=== PATIENT | male | born 1940 | race Caucasian/White ===

== ENCOUNTER 2017-11-16 11:39 | Observation (INO) ==
[2017-11-16 13:08] LABS: BILIRUBIN,URINE NEGATIVE (NEGATIVE); BLOOD/HEMOGLOBIN,URINE 1+ (NEGATIVE); GLUCOSE, URINE NEGATIVE (NEGATIVE); KETONES,URINE 3+ (NEGATIVE); LEUKOCYTE ESTERASE ,URINE 1+ (NEGATIVE); NITRITES,URINE NEGATIVE (NEGATIVE); PROTEIN,URINE 2+ (NEGATIVE); UROBILINOGEN,URINE NORMAL (NORMAL)
[2017-11-16 13:14] LABS: BASOPHILS # (AUTO) 0.1 X10^3/uL (0.0-0.1); BASOPHILS % (AUTO) 0.5 % (0.2-1.0); EOSINOPHILS # (AUTO) 0.1 x10^3/uL (0.0-0.2); EOSINOPHILS % (AUTO) 0.8 % (0.9-2.9); HEMATOCRIT 45.6 % (42.0-54.0); HEMOGLOBIN 15.8 g/dL (13.5-18.0); LYMPHOCYTES # (AUTO) 1.7 X10^3/uL (1.3-2.9); LYMPHOCYTES % (AUTO) 15.5 % (21.0-51.0); MEAN CORPUSCULAR HEMOGLOBIN 31.1 pg (27.0-34.0); MEAN CORPUSCULAR HGB CONC 34.7 g/dL (33.0-35.0); MEAN CORPUSCULAR VOLUME 89.8 fL (80.0-100.0); MEAN PLATELET VOLUME 9.1 fL (7.4-11.0); MONOCYTES % (AUTO) 9.8 % (0.0-13.0); NEUTROPHILS # (AUTO) 7.8 x10^3/uL (2.2-4.8); NEUTROPHILS % (AUTO) 73.4 % (42.0-75.0); PLATELET COUNT 169 X10^3/uL (150.0-450.0); RED BLOOD COUNT 5.08 X10^6/uL (4.7-6.0); RED CELL DISTRIBUTION WIDTH 13.9 % (11.6-16.5); WHITE BLOOD COUNT 10.7 X10^3/uL (3.6-10.0)
[2017-11-16] MEDS: PEPCID 20 MG IV PREMIX* 20 MG/50 ML BAG IV SCH ×2 (13:15→21:09)
[2017-11-16] MEDS: PROTONIX INJ 40 MG VIAL IVP SCH ×2 (13:15→21:09)
[2017-11-16] MEDS: NS 1000 ML 1,000 ML IV SCH ×2 (13:15→21:08)
[2017-11-16 13:25] LABS: ALANINE AMINOTRANSFERASE 28 Units/L (12-78); ALBUMIN 3.5 g/dL (3.4-5.0); ALKALINE PHOSPHATASE 85 Units/L (46-116); ASPARTATE AMINO TRANSFERASE 18 Units/L (15-37); BLOOD UREA NITROGEN 18 mg/dL (7-18); CALCIUM 8.1 mg/dL (8.5-10.1); CARBON DIOXIDE 26.2 mmol/L (21-32); CHLORIDE 101 mmol/L (98-107); COR NA(FOR HYPERGLY) 137 mmol/L (136-145); CREATININE 1.45 mg/dL (0.70-1.30); SODIUM 137 mmol/L (136-145); TOTAL PROTEIN 7.5 g/dL (6.4-8.2); eGFR NON BLACK RACES 51 (>60)
[2017-11-16 13:32] VITALS: BMI 26.9
[2017-11-16 13:34] LABS: APPEARANCE,URINE HAZY (CLEAR); BACTERIA,URINE TRACE /HPF (NEGATIVE); COLOR,URINE DARK YELLOW (YELLOW); HYALINE CASTS, URINE MODERATE /LPF (NEGATIVE); MUCUS,URINE MODERATE /HPF (NEGATIVE); SQUAMOUS EPITHELIAL CELL,UR FEW /HPF (NEGATIVE)
--- NOTE | 2017-11-16 16:55 | CT ---
Indication: Abdominal pain and history of prostate cancer Exam: CT abdomen and pelvis without contrast. Technique: Axial spiral images were obtained from lung bases through the pubic symphysis after oral c ontrast only. Automated dose control was utilized. Comparison: 07/30/2014. Findings: There is mild parenchymal scarring along the right lung base which is unchanged. The liver and spleen are normal size and density. There is interposition of the colon anterior to the liver whi ch is unchanged. The gallbladder has been removed with clips in the gallbladder fossa. The bile ducts , pancreas, and adrenals are normal. There is perirenal scarring around both kidneys . There is a hyp odense mass along the upper pole left kidney measuring 2 cm which measures water density . There is p erirenal scarring bilaterally which is unchanged. No hydronephrosis or renal stones are seen. The ure ters are normal caliber. There are radium implants scattered in the prostate gland . The bladder is u nremarkable with mild fat density along the inguinal regions bilaterally which is unchanged . There a re no bowel loops in the area which is unchanged. There are numerous diverticula throughout the left colon and sigmoid region with no pericolonic inflammation. There are several loops of mild to moderat tom dilated small bowel throughout the abdomen extending into the pelvis with a couple of loops of no rmal appearing distal ileum extending to the ileocecal valve . There small air-fluid levels throughou t the small bowel. The point of the obstruction is not well delineated. The appendix is unremarkable with no pericecal inflammation . The mesentery is unremarkable. The colon is normal caliber . No heladio opathy or ascites is seen. The bones are intact. No aggressive osseous lesion is seen. Impression: Findings in keeping with a distal partial small bowel obstruction with the etiology of the obstructio n uncertain. Perirenal scarring with no hydronephrosis or renal stones and no urinary obstruction . 2 cm cyst upper pole left kidney which has enlarged since the prior study, suggest ultrasound correla tion. Previous cholecystectomy which is unchanged. Moderate diverticulosis of the left colon and sigmoid region with no pericolonic inflammation. [place] implants in the prostate gland and probable small inguinal hernias bilaterally which is unchan ged. Reported By:
[2017-11-17 05:17] LABS: BASOPHILS % (AUTO) 0.5 % (0.2-1.0); EOSINOPHILS # (AUTO) 0.1 x10^3/uL (0.0-0.2); EOSINOPHILS % (AUTO) 1.8 % (0.9-2.9); HEMATOCRIT 40.5 % (42.0-54.0); HEMOGLOBIN 13.8 g/dL (13.5-18.0); LYMPHOCYTES # (AUTO) 1.4 X10^3/uL (1.3-2.9); LYMPHOCYTES % (AUTO) 20.9 % (21.0-51.0); MEAN CORPUSCULAR HEMOGLOBIN 30.8 pg (27.0-34.0); MEAN CORPUSCULAR HGB CONC 34.1 g/dL (33.0-35.0); MEAN CORPUSCULAR VOLUME 90.3 fL (80.0-100.0); MEAN PLATELET VOLUME 9.2 fL (7.4-11.0); MONOCYTES # (AUTO) 0.8 x10^3/uL (0.3-0.8); MONOCYTES % (AUTO) 11.9 % (0.0-13.0); NEUTROPHILS # (AUTO) 4.4 x10^3/uL (2.2-4.8); NEUTROPHILS % (AUTO) 64.9 % (42.0-75.0); PLATELET COUNT 155 X10^3/uL (150.0-450.0); RED BLOOD COUNT 4.48 X10^6/uL (4.7-6.0); WHITE BLOOD COUNT 6.7 X10^3/uL (3.6-10.0)
[2017-11-17 05:34] LABS: ALANINE AMINOTRANSFERASE 25 Units/L (12-78); ALBUMIN 2.9 g/dL (3.4-5.0); ALKALINE PHOSPHATASE 71 Units/L (46-116); ASPARTATE AMINO TRANSFERASE 18 Units/L (15-37); BLOOD UREA NITROGEN 16 mg/dL (7-18); CALCIUM 7.2 mg/dL (8.5-10.1); CHLORIDE 108 mmol/L (98-107); COR CA(FOR HYPOALB) 8.1 mg/dL (8.5-10.1); CREATININE 1.21 mg/dL (0.70-1.30); SODIUM 139 mmol/L (136-145); TOTAL PROTEIN 6.2 g/dL (6.4-8.2); eGFR NON BLACK RACES > 60 (>60)
[2017-11-17] MEDS: NS 1000 ML 1,000 ML IV SCH ×3 (05:34→21:11)
--- NOTE | 2017-11-17 07:28 | RAD ---
HISTORY: Follow-up partial small bowel obstruction Study: KUB Comparison: CT abdomen pelvis 11/16/2017, Findings: Multiple dilated loops of small bowel are identified in the upper abdomen. Gas is seen distally withi n the colon as it is contrast from recent CT. This precludes complete small bowel obstruction. A part ial small bowel obstruction is likely present. No abnormal masses or abnormal calcifications are iden tified. IMPRESSION: Finding consistent with at least partial small bowel obstruction Reported By:
--- NOTE | 2017-11-17 08:06 | DR.UPDATE ---
H&P Update History and Physical Update: WAS SEEN IN THE OFFICE TODAY. A H&P WAS COMPLETED PRIOR TO ADMISSION. PATIENT HAS BEEN SEEN AND EXAMINED WITH NO CHANGES NOTED TO H&P. Changes noted: NO Yes with the following:
[2017-11-17] MEDS: PEPCID 20 MG IV PREMIX* 20 MG/50 ML BAG IV SCH ×3 (08:14→21:25)
[2017-11-17] MEDS: PROTONIX INJ 40 MG VIAL IVP SCH ×2 (08:14→21:11)
[2017-11-17] MEDS: LOPRESSOR TAB 25 MG PO SCH ×2 (10:18→10:26)
[2017-11-17] MEDS: MYSOLINE PO SCH ×2 (10:19→10:27)
[2017-11-17] MEDS: ALPHAGAN 0.2% OPHTH SOLN RIGHTEYE SCH ×3 (10:25→21:14)
[2017-11-17] MEDS: TRUSOPT PLUS (OPHTH) RIGHTEYE SCH ×3 (10:26→21:24)
[2017-11-17] MEDS: SYNTHROID 50 mcg TAB PO SCH (16:23)
--- NOTE | 2017-11-17 19:57 | PCM.PROG ---
Progress Note - Progress Note for Day of Date: 11/17/17 - Subjective Subjective: WAS ADMITTED FOR ABDOMINAL PAIN, DIARRHEA, AND GENERALIZED WEAKNESS. CT OBTAINED ON ADMISSION REVEALED A PARTIAL SMALL BOWEL OBSTRUCTION. TODAY, HE IS ALERT AND ORIENTED, LYING IN BED ON MORNING ROUNDS. HE CONTINUES WITH MILD, DIFFUSE ABDOMINAL PAIN AND LOOSE STOOLS. HE ALSO CONTINUES WITH GENERALIZED WEAKNESS. HIS VITALS THIS MORNING ARE 98.0-63-20-97%- 129/67. LABS WERE OBTAINED. ABNORMAL LAB VALUES INCLUDE THE FOLLOWING: RBC 4.48 , HCT 40.25, CHLORIDE 108, CARBON DIOXIDE 20.0, CALCIUM 7.2, TOTAL PROTEIN 6.2, ALBUMIN 2.9. URINALYSIS REVEALED WBC 3-5, RBC 3-5, LEUKOCYTES 1+, BACTERIA TRACE. A KUB WAS OBTAINED THIS MORNING AND REVEALED FINDINGS CONSISTENT WITH AT LEAST PARTIAL SMALL BOWEL OBSTRUCTION. TODAY, WE WILL ALLOW PATIENT TO HAVE A CLEAR LIQUID DIET TOLERATED AND START ROCEPHIN 1GM IV DAILY FOR UTI. OTHERWISE, WE WILL FOLLOW UP WITH AM LABS AND CONTINUE TO MONTIOR PATIENT. - Past Medical Family Social History Past Med/Fam/Surg Hx: No changes since H&P (T) Allergies: Allergies Iodinated Contrast- Oral and IV Dye Allergy (Verified 11/17/17 09:40) - Review of Systems ROS: No change since H&P - Vital Signs and I&O's Vital Signs: Temperature 97.6 F Pulse Rate [Left Brachial] 60 Pulse Rate [Right Brachial] 56 Respiratory Rate 18 Blood Pressure [Left Arm] 124/66 Blood Pressure [Right Arm] 120/62 Blood Pressure 150/67 O2 Sat by Pulse Oximetry 96 Intake and Output: Intake & Output 11/15/17 11/16/17 11/17/17 11/18/17 11:59 11:59 11:59 11:59 Intake Total 1630 1120 Balance 1630 1120 - Physical Exam Oriented: Normal Eyes: Normal Ear: Normal Nose: Normal Throat: Normal Respiratory: Normal Cardiovascular: Normal. negative: S3, S4, Murmur, Edema : Normal Auscultation: Bowel Sounds: Normal Palpation: Normal Tenderness: Diffuse, Mild. negative: Rebound, Guarding, Rigidity Skin: Normal Musculoskeletal: Normal Psychiatric: Normal Mood Description: Calm Affect: Normal Speech Pattern: Clear, Appropriate - Laboratory and Diagnostics Result Diagrams: 11/17/17 04:52 11/17/17 04:52 Labs: Laboratory WBC 6.7 X10^3/uL (3.6-10.0) 11/17/17 04:52 RBC 4.48 X10^6/uL (4.7-6.0) L 11/17/17 04:52 Hgb 13.8 g/dL (13.5-18.0) D 11/17/17 04:52 Hct 40.5 % (42.0-54.0) L 11/17/17 04:52 MCV 90.3 fL (80.0-100.0) 11/17/17 04:52 MCH 30.8 pg (27.0-34.0) 11/17/17 04:52 MCHC 34.1 g/dL (33.0-35.0) 11/17/17 04:52 RDW 14.0 % (11.6-16.5) 11/17/17 04:52 Plt Count 155 X10^3/uL (150.0-450.0) 11/17/17 04:52 MPV 9.2 fL (7.4-11.0) 11/17/17 04:52 Neut % (Auto) 64.9 % (42.0-75.0) 11/17/17 04:52 Lymph % (Auto) 20.9 % (21.0-51.0) L 11/17/17 04:52 [place] % (Auto) 11.9 % (0.0-13.0) 11/17/17 04:52 Eos % (Auto) 1.8 % (0.9-2.9) 11/17/17 04:52 Baso % (Auto) 0.5 % (0.2-1.0) 11/17/17 04:52 Neut # (Auto) 4.4 x10^3/uL (2.2-4.8) 11/17/17 04:52 Lymph # (Auto) 1.4 X10^3/uL (1.3-2.9) 11/17/17 04:52 [place] # (Auto) 0.8 x10^3/uL (0.3-0.8) 11/17/17 04:52 Eos # (Auto) 0.1 x10^3/uL (0.0-0.2) 11/17/17 04:52 Baso # (Auto) 0.0 X10^3/uL (0.0-0.1) 11/17/17 04:52 Absolute Nucleated RBC 0.0 /100WBC 11/17/17 04:52 Sodium 139 mmol/L (136-145) 11/17/17 04:52 Corrected Sodium TNP 11/17/17 04:52 Potassium 3.9 mmol/L (3.5-5.1) 11/17/17 04:52 Chloride 108 mmol/L (98-107) H 11/17/17 04:52 Carbon Dioxide 20.0 mmol/L (21-32) L 11/17/17 04:52 BUN 16 mg/dL (7-18) 11/17/17 04:52 Creatinine 1.21 mg/dL (0.70-1.30) 11/17/17 04:52 Est GFR (MDRD) Af Amer > 60 (>60) 11/17/17 04:52 Est GFR (MDRD) Non-Af > 60 (>60) 11/17/17 04:52 Glucose 88 mg/dL (65-99) 11/17/17 04:52 Calcium 7.2 mg/dL (8.5-10.1) L 11/17/17 04:52 Corrected Calcium 8.1 mg/dL (8.5-10.1) L 11/17/17 04:52 Total Bilirubin 0.60 mg/dL (0.2-1.0) 11/17/17 04:52 AST 18 Units/L (15-37) 11/17/17 04:52 ALT 25 Units/L (12-78) 11/17/17 04:52 Alkaline Phosphatase 71 Units/L (46-116) 11/17/17 04:52 Total Protein 6.2 g/dL (6.4-8.2) L 11/17/17 04:52 Albumin 2.9 g/dL (3.4-5.0) L 11/17/17 04:52 Globulin 3.3 g/dL (2.5-4.5) 11/17/17 04:52 Albumin/Globulin Ratio 0.9 Ratio (1.1-2.1) L 11/17/17 04:52 Specimen Type Clean catch urine 11/16/17 12:46 Urine Color Dark yellow (YELLOW) 11/16/17 12:46 Urine Appearance Hazy (CLEAR) 11/16/17 12:46 Urine pH 5.0 (5.0 - 8.0) 11/16/17 12:46 Ur Specific [place] 1.025 (1.000-1.030) 11/16/17 12:46 Urine Protein 2+ (NEGATIVE) 11/16/17 12:46 Urine Glucose (UA) Negative (NEGATIVE) 11/16/17 12:46 Urine Ketones 3+ (NEGATIVE) 11/16/17 12:46 Urine Occult Blood 1+ (NEGATIVE) 11/16/17 12:46 Urine Nitrite Negative (NEGATIVE) 11/16/17 12:46 Urine Bilirubin Negative (NEGATIVE) 11/16/17 12:46 Urine Urobilinogen Normal (NORMAL) 11/16/17 12:46 Ur Leukocyte Esterase 1+ (NEGATIVE) 11/16/17 12:46 Urine RBC 3-5 /HPF (NONE SEEN) 11/16/17 12:46 Urine WBC 3-5 /HPF (NONE SEEN) 11/16/17 12:46 Ur Squamous Epith Cells Few /HPF (NEGATIVE) 11/16/17 12:46 Urine Bacteria Trace /HPF (NEGATIVE) 11/16/17 12:46 Hyaline Casts Moderate /LPF (NEGATIVE) 11/16/17 12:46 Urine Mucus Moderate /HPF (NEGATIVE) 11/16/17 12:46 Ur Culture Indicated? No/not indicated 11/16/17 12:46 - Plan (1) Small bowel obstruction Status: Acute Plan: CLEAR LIQUID DIET, CONTINUE IV FLUIDS, CONTINUE TO MONITOR (2) UTI (urinary tract infection) Status: Acute Qualifiers: Urinary tract infection type: acute cystitis Hematuria presence: without hematuria Qualified Code(s): N30.00 - Acute cystitis without hematuria Plan: ROCEPHIN 1GM IV DAILY (3) Gastroesophageal reflux disease Status: Chronic Plan: PEPCID 20MG IV Q12H, PROTONIX 40MG IV BID, CONTINUE TO MONITOR (4) Glaucoma Status: Chronic Plan: CONTINUE HOME MEDICATIONS (5) History of - hypertension Status: Chronic Plan: CONTINUE LOPRESSOR 25MG PO DAILY (6) Hypothyroid Status: Acute Qualifiers: Hypothyroidism type: acquired Qualified Code(s): E03.9 - Hypothyroidism, unspecified Plan: CONTINUE SYNTHROID, CONTINUE TO MONITOR
[2017-11-17] MEDS: BIMATOPROST EACHEYE SCH ×2 (21:12→21:16)
[2017-11-18] MEDS: NS 1000 ML 1,000 ML IV SCH ×3 (04:16→20:25)
[2017-11-18 05:06] LABS: BASOPHILS % (AUTO) 0.5 % (0.2-1.0); EOSINOPHILS # (AUTO) 0.1 x10^3/uL (0.0-0.2); EOSINOPHILS % (AUTO) 1.8 % (0.9-2.9); HEMATOCRIT 39.4 % (42.0-54.0); HEMOGLOBIN 13.5 g/dL (13.5-18.0); LYMPHOCYTES % (AUTO) 17.2 % (21.0-51.0); MEAN CORPUSCULAR HGB CONC 34.3 g/dL (33.0-35.0); MEAN CORPUSCULAR VOLUME 90.5 fL (80.0-100.0); MEAN PLATELET VOLUME 9.4 fL (7.4-11.0); MONOCYTES # (AUTO) 0.6 x10^3/uL (0.3-0.8); MONOCYTES % (AUTO) 9.8 % (0.0-13.0); NEUTROPHILS # (AUTO) 4.2 x10^3/uL (2.2-4.8); NEUTROPHILS % (AUTO) 70.7 % (42.0-75.0); PLATELET COUNT 149 X10^3/uL (150.0-450.0); RED BLOOD COUNT 4.36 X10^6/uL (4.7-6.0); WHITE BLOOD COUNT 5.9 X10^3/uL (3.6-10.0)
[2017-11-18 05:21] LABS: ALANINE AMINOTRANSFERASE 23 Units/L (12-78); ALBUMIN 2.8 g/dL (3.4-5.0); ALKALINE PHOSPHATASE 71 Units/L (46-116); ASPARTATE AMINO TRANSFERASE 21 Units/L (15-37); BLOOD UREA NITROGEN 15 mg/dL (7-18); CALCIUM 7.2 mg/dL (8.5-10.1); CARBON DIOXIDE 19.8 mmol/L (21-32); CHLORIDE 111 mmol/L (98-107); COR CA(FOR HYPOALB) 8.2 mg/dL (8.5-10.1); CREATININE 1.11 mg/dL (0.70-1.30); SODIUM 142 mmol/L (136-145); TOTAL PROTEIN 5.9 g/dL (6.4-8.2); eGFR NON BLACK RACES > 60 (>60)
--- NOTE | 2017-11-18 07:31 | RAD ---
History: Partial small bowel obstruction Study: KUB, comparison 11/17/2017 Findings: Spine view of the abdomen and pelvis shows minimal contrast throughout colon than. Innumera ble diverticula are seen throughout the colon particularly left colon. There is slight persistent dilatation of bowel in the mid to left abdomen this is minimally less appa rent than on the previous examination. Impression: 1. Minimal decrease in the amount of small bowel distention. 2. Prominent diverticulosis Reported By:
[2017-11-18] MEDS: LOPRESSOR TAB 25 MG PO SCH (08:33)
[2017-11-18] MEDS: MYSOLINE PO SCH (08:33)
[2017-11-18] MEDS: PEPCID 20 MG IV PREMIX* 20 MG/50 ML BAG IV SCH ×2 (08:35→20:27)
[2017-11-18] MEDS: PROTONIX INJ 40 MG VIAL IVP SCH ×2 (08:35→20:27)
[2017-11-18] MEDS: TRUSOPT PLUS (OPHTH) RIGHTEYE SCH ×2 (08:36→20:27)
[2017-11-18] MEDS: ALPHAGAN 0.2% OPHTH SOLN RIGHTEYE SCH ×3 (08:36→20:26)
[2017-11-18] MEDS: SYNTHROID 50 mcg TAB PO SCH (15:59)
[2017-11-18] MEDS: BIMATOPROST EACHEYE SCH (20:26)
--- NOTE | 2017-11-18 22:04 | PCM.PROG ---
Progress Note - Progress Note for Day of Date: 11/18/17 - Subjective Subjective: WAS ADMITTED FOR ABDOMINAL PAIN, DIARRHEA, AND GENERALIZED WEAKNESS. CT OBTAINED ON ADMISSION REVEALED A PARTIAL SMALL BOWEL OBSTRUCTION. TODAY, HE IS ALERT AND ORIENTED, LYING IN BED ON MORNING ROUNDS. HE CONTINUES WITH MILD, DIFFUSE ABDOMINAL PAIN AND LOOSE STOOLS. HE ALSO CONTINUES WITH GENERALIZED WEAKNESS. HIS VITALS THIS MORNING ARE 97.6-68-18-96%- 139/69. LABS WERE OBTAINED. ABNORMAL LAB VALUES INCLUDE THE FOLLOWING: RBC 4.36 , HCT 39.4, CHLORIDE 111, CARBON DIOXIDE 19.8, CALCIUM 7.2, TOTAL PROTEIN 5.9, ALBUMIN 2.8. A KUB WAS OBTAINED AND REVEALED MINIMAL DECREASE IN THE AMOUNT OF SMALL BOWEL DISTENTION. PROMINENT DIVERTICULOSIS. TODAY, WE WILL ADVANCE DIET TO FULL LIQUIDS. OTHERWISE, WE WILL FOLLOW UP WITH AM LABS AND CONTINUE TO MONITOR PATIENT. - Past Medical Family Social History Past Med/Fam/Surg Hx: No changes since H&P (T) Allergies: Allergies Iodinated Contrast- Oral and IV Dye Allergy (Verified 11/17/17 09:40) - Review of Systems ROS: No change since H&P - Vital Signs and I&O's Vital Signs: Temperature 97.8 F Pulse Rate [Left Brachial] 62 Pulse Rate [Right Brachial] 56 Respiratory Rate 18 Blood Pressure [Left Arm] 123/62 Blood Pressure [Right Arm] 120/62 Blood Pressure 150/67 O2 Sat by Pulse Oximetry 97 Intake and Output: Intake & Output 11/16/17 11/17/17 11/18/17 11/19/17 11:59 11:59 11:59 11:59 Intake Total 1630 1360 340 Balance 1630 1360 340 - Physical Exam Oriented: Normal Eyes: Normal Ear: Normal Nose: Normal Throat: Normal Respiratory: Normal Cardiovascular: Normal. negative: S3, S4, Murmur, Edema : Normal Auscultation: Bowel Sounds: Normal Palpation: Normal Tenderness: Diffuse, Mild. negative: Rebound, Guarding, Rigidity Skin: Normal Musculoskeletal: Normal Psychiatric: Normal Mood Description: Calm Affect: Normal Speech Pattern: Clear - Laboratory and Diagnostics Result Diagrams: 11/18/17 04:18 11/18/17 04:18 Labs: Laboratory WBC 5.9 X10^3/uL (3.6-10.0) 11/18/17 04:18 RBC 4.36 X10^6/uL (4.7-6.0) L 11/18/17 04:18 Hgb 13.5 g/dL (13.5-18.0) 11/18/17 04:18 Hct 39.4 % (42.0-54.0) L 11/18/17 04:18 MCV 90.5 fL (80.0-100.0) 11/18/17 04:18 MCH 31.0 pg (27.0-34.0) 11/18/17 04:18 MCHC 34.3 g/dL (33.0-35.0) 11/18/17 04:18 RDW 14.0 % (11.6-16.5) 11/18/17 04:18 Plt Count 149 X10^3/uL (150.0-450.0) L 11/18/17 04:18 MPV 9.4 fL (7.4-11.0) 11/18/17 04:18 Neut % (Auto) 70.7 % (42.0-75.0) 11/18/17 04:18 Lymph % (Auto) 17.2 % (21.0-51.0) L 11/18/17 04:18 [place] % (Auto) 9.8 % (0.0-13.0) 11/18/17 04:18 Eos % (Auto) 1.8 % (0.9-2.9) 11/18/17 04:18 Baso % (Auto) 0.5 % (0.2-1.0) 11/18/17 04:18 Neut # (Auto) 4.2 x10^3/uL (2.2-4.8) 11/18/17 04:18 Lymph # (Auto) 1.0 X10^3/uL (1.3-2.9) L 11/18/17 04:18 [place] # (Auto) 0.6 x10^3/uL (0.3-0.8) 11/18/17 04:18 Eos # (Auto) 0.1 x10^3/uL (0.0-0.2) 11/18/17 04:18 Baso # (Auto) 0.0 X10^3/uL (0.0-0.1) 11/18/17 04:18 Absolute Nucleated RBC 0.1 /100WBC 11/18/17 04:18 Sodium 142 mmol/L (136-145) 11/18/17 04:18 Corrected Sodium TNP 11/18/17 04:18 Potassium 3.9 mmol/L (3.5-5.1) 11/18/17 04:18 Chloride 111 mmol/L (98-107) H 11/18/17 04:18 Carbon Dioxide 19.8 mmol/L (21-32) L 11/18/17 04:18 BUN 15 mg/dL (7-18) 11/18/17 04:18 Creatinine 1.11 mg/dL (0.70-1.30) 11/18/17 04:18 Est GFR (MDRD) Af Amer > 60 (>60) 11/18/17 04:18 Est GFR (MDRD) Non-Af > 60 (>60) 11/18/17 04:18 Glucose 73 mg/dL (65-99) 11/18/17 04:18 Calcium 7.2 mg/dL (8.5-10.1) L 11/18/17 04:18 Corrected Calcium 8.2 mg/dL (8.5-10.1) L 11/18/17 04:18 Total Bilirubin 0.70 mg/dL (0.2-1.0) 11/18/17 04:18 AST 21 Units/L (15-37) 11/18/17 04:18 ALT 23 Units/L (12-78) 11/18/17 04:18 Alkaline Phosphatase 71 Units/L (46-116) 11/18/17 04:18 Total Protein 5.9 g/dL (6.4-8.2) L 11/18/17 04:18 Albumin 2.8 g/dL (3.4-5.0) L 11/18/17 04:18 Globulin 3.1 g/dL (2.5-4.5) 11/18/17 04:18 Albumin/Globulin Ratio 0.9 Ratio (1.1-2.1) L 11/18/17 04:18 Specimen Type Clean catch urine 11/16/17 12:46 Urine Color Dark yellow (YELLOW) 11/16/17 12:46 Urine Appearance Hazy (CLEAR) 11/16/17 12:46 Urine pH 5.0 (5.0 - 8.0) 11/16/17 12:46 Ur Specific [place] 1.025 (1.000-1.030) 11/16/17 12:46 Urine Protein 2+ (NEGATIVE) 11/16/17 12:46 Urine Glucose (UA) Negative (NEGATIVE) 11/16/17 12:46 Urine Ketones 3+ (NEGATIVE) 11/16/17 12:46 Urine Occult Blood 1+ (NEGATIVE) 11/16/17 12:46 Urine Nitrite Negative (NEGATIVE) 11/16/17 12:46 Urine Bilirubin Negative (NEGATIVE) 11/16/17 12:46 Urine Urobilinogen Normal (NORMAL) 11/16/17 12:46 Ur Leukocyte Esterase 1+ (NEGATIVE) 11/16/17 12:46 Urine RBC 3-5 /HPF (NONE SEEN) 11/16/17 12:46 Urine WBC 3-5 /HPF (NONE SEEN) 11/16/17 12:46 Ur Squamous Epith Cells Few /HPF (NEGATIVE) 11/16/17 12:46 Urine Bacteria Trace /HPF (NEGATIVE) 11/16/17 12:46 Hyaline Casts Moderate /LPF (NEGATIVE) 11/16/17 12:46 Urine Mucus Moderate /HPF (NEGATIVE) 11/16/17 12:46 Ur Culture Indicated? No/not indicated 11/16/17 12:46 - Plan (1) Small bowel obstruction Status: Acute Plan: CLEAR LIQUID DIET, CONTINUE IV FLUIDS, CONTINUE TO MONITOR (2) UTI (urinary tract infection) Status: Acute Qualifiers: Urinary tract infection type: acute cystitis Hematuria presence: without hematuria Qualified Code(s): N30.00 - Acute cystitis without hematuria Plan: ROCEPHIN 1GM IV DAILY (3) Gastroesophageal reflux disease Status: Chronic Plan: PEPCID 20MG IV Q12H, PROTONIX 40MG IV BID, CONTINUE TO MONITOR (4) Glaucoma Status: Chronic Plan: CONTINUE HOME MEDICATIONS (5) History of - hypertension Status: Chronic Plan: CONTINUE LOPRESSOR 25MG PO DAILY (6) Hypothyroid Status: Acute Qualifiers: Hypothyroidism type: acquired Qualified Code(s): E03.9 - Hypothyroidism, unspecified Plan: CONTINUE SYNTHROID, CONTINUE TO MONITOR
--- NOTE | 2017-11-19 09:59 | RAD ---
HISTORY: Partial small bowel obstruction Study: KUB Comparison: 11/18/2017 Findings: Multiple dilated loops of small bowel are again identified in the left upper quadrant. Gas is present distally within the colon. These findings are consistent with at least partial small bowel obstructi on and are unchanged from the prior examination. Contrast is present in numerous descending and sigmo id colon diverticula unchanged from the prior examination. IMPRESSION: Findings suggestive of at least a partial small bowel obstruction unchanged when compared with the pr ior examination Reported By:
[2017-11-19 14:09] LABS: ALANINE AMINOTRANSFERASE 21 Units/L (12-78); ALBUMIN 2.6 g/dL (3.4-5.0); ALKALINE PHOSPHATASE 66 Units/L (46-116); ASPARTATE AMINO TRANSFERASE 19 Units/L (15-37); BASOPHILS % (AUTO) 0.5 % (0.2-1.0); BLOOD UREA NITROGEN 9 mg/dL (7-18); CALCIUM 7.2 mg/dL (8.5-10.1); CARBON DIOXIDE 19.6 mmol/L (21-32); CHLORIDE 112 mmol/L (98-107); COR CA(FOR HYPOALB) 8.3 mg/dL (8.5-10.1); CREATININE 1.12 mg/dL (0.70-1.30); EOSINOPHILS # (AUTO) 0.1 x10^3/uL (0.0-0.2); EOSINOPHILS % (AUTO) 2.2 % (0.9-2.9); HEMATOCRIT 37.7 % (42.0-54.0); LYMPHOCYTES # (AUTO) 1.1 X10^3/uL (1.3-2.9); LYMPHOCYTES % (AUTO) 21.7 % (21.0-51.0); MEAN CORPUSCULAR HGB CONC 34.5 g/dL (33.0-35.0); MEAN CORPUSCULAR VOLUME 89.9 fL (80.0-100.0); MEAN PLATELET VOLUME 9.5 fL (7.4-11.0); MONOCYTES # (AUTO) 0.6 x10^3/uL (0.3-0.8); MONOCYTES % (AUTO) 11.6 % (0.0-13.0); NEUTROPHILS # (AUTO) 3.3 x10^3/uL (2.2-4.8); PLATELET COUNT 141 X10^3/uL (150.0-450.0); RED BLOOD COUNT 4.19 X10^6/uL (4.7-6.0); RED CELL DISTRIBUTION WIDTH 13.8 % (11.6-16.5); SODIUM 144 mmol/L (136-145); TOTAL PROTEIN 5.6 g/dL (6.4-8.2); WHITE BLOOD COUNT 5.1 X10^3/uL (3.6-10.0); eGFR NON BLACK RACES > 60 (>60)
[2017-11-19 14:47] VITALS: BP 144/72
--- NOTE | 2017-12-09 23:37 | DR.CARTERD ---
- Discharge Summary for: Discharge Summary for Date of:: 11/19/17 - Admission Date Date of Admission: 11/16/17 - Admission Diagnoses Admission Diagnosis: (1) Small bowel obstruction (2) UTI (urinary tract infection) (3) Gastroesophageal reflux disease (4) Glaucoma (5) History of - hypertension (6) Hypothyroid - Discharge Date Discharge Date: 11/19/17 - Discharge Diagnoses Discharge Diagnosis: (1) Small bowel obstruction (2) UTI (urinary tract infection) (3) Gastroesophageal reflux disease (4) Glaucoma (5) History of - hypertension (6) Hypothyroid - Hospital Course Hospital Course: MR. MOTA WAS ADMITTED FOR ABDOMINAL PAIN, DIARRHEA, AND GENERALIZED WEAKNESS. CT OBTAINED ON ADMISSION REVEALED A PARTIAL SMALL BOWEL OBSTRUCTION. WE ADMITTED PATIENT AND STARTED IV FLUIDS. HE WAS ALERT AND ORIENTED, LYING IN BED ON MORNING ROUNDS. HE CONTINUED WITH MILD, DIFFUSE ABDOMINAL PAIN AND LOOSE STOOLS. HE ALSO CONTINUED WITH GENERALIZED WEAKNESS. HIS VITALS WERE 98.0-63-20- 97%-129/67. LABS WERE OBTAINED. ABNORMAL LAB VALUES INCLUDED THE FOLLOWING: RBC 4.48, HCT 40.25, CHLORIDE 108, CARBON DIOXIDE 20.0, CALCIUM 7.2, TOTAL PROTEIN 6.2, ALBUMIN 2.9. URINALYSIS REVEALED WBC 3-5, RBC 3-5, LEUKOCYTES 1+, BACTERIA TRACE. A KUB WAS OBTAINED ND REVEALED FINDINGS CONSISTENT WITH AT LEAST PARTIAL SMALL BOWEL OBSTRUCTION. ON DAY TWO, WE STARTED A CLEAR LIQUID DIET TOLERATED AND STARTED ROCEPHIN 1GM IV DAILY FOR UTI. ON DAY THREE, A KUB WAS OBTAINED AND REVEALED MINIMAL DECREASE IN THE AMOUNT OF SMALL BOWEL DISTENTION; PROMINENT DIVERTICULOSIS. WE ADVANCED DIET TO FULL LIQUIDS. ON DAY FOUR, PATIENT REPORTED HE WAS FEELING BETTER. A KUB REPORTED FINDINGS CONSISTENT WITH AT LEAST PARTIAL SMALL BOWEL OBSTRUCTION. PATIENT TOLERATED FULL LIQUID DIET WELL WITH NO NAUSEA OR VOMITING. VITAL SIGNS STABLE. LABS WNL. WE PLANNED FOR DISCHARGE. INSTRUCTIONS FOR MEDICATIONS, DIET, AND FOLLOW UP WERE DISCUSSED WITH PATIENT AND FAMILY, BOTH VOICED UNDERSTANDING. PATIENT DISCHARGED HOME IN STABLE CONDITION WITH FAMILY. - Discharge Medications Discharge Medications: Home Medication List bimatoprost 1 drp AFFEYE HS 11/16/17 [History] dorzolamide 1 drp AFFEYE BID 11/16/17 [History] levothyroxine 50 mcg PO DAILY 11/16/17 [History] primidone 50 mg PO DAILY 11/16/17 [History] Prescriptions: aspirin [Aspir-81] 81 mg PO DAILY 06/27/12 brimonidine 0.2 % OPHTHALMIC (EYE) BID 06/27/12 metoprolol tartrate 1 tab PO DAILY 07/30/14 - Discharge Disposition Discharge Disposition: PATIENT IS TO FOLLOW UP IN OUR OFFICE IN ONE WEEK.
== END 2017-11-19 11:00 | disposition home or self-care (01) ==
LOC: MED/SURG 11:39 → UNDOADMOB 11:39 → MED/SURG 12:23
PROVIDERS: ADMIT Internal Medicine; ATTEND Internal Medicine
DX: G25.0 Essential tremor; R53.83 Other fatigue; R53.1 Weakness; K56.690 Other partial intestinal obstruction; N28.1 Cyst of kidney, acquired; K52.89 Other specified noninfective gastroenteritis and colitis; R10.13 Epigastric pain; I10 Essential (primary) hypertension; R19.7 Diarrhea, unspecified; N30.00 Acute cystitis without hematuria; E03.8 Other specified hypothyroidism; Z87.19 Personal history of other diseases of the digestive system; K21.9 Gastro-esophageal reflux disease without esophagitis
CPT/HCPCS: 36415; 74000; 74018; 74176; 80053; 81001; 85025; A4216; A4222; C9113; S0028; G0378; J7030